=== PATIENT | female | born 1960 | race Caucasian/White ===

== ENCOUNTER 2024-10-15 15:39 | Emergency (ER) | payer OTHER, SELFPAY ==
--- NOTE | ~2024-10-15 | XR_ITS ---
XR foot RT min 3V Ordering provider: Lourdes Pineda NP History: . medial aspect of right foot pain from injury 4 hours . Comparison: None. FINDINGS: BONES: No acute fracture or dislocation. Calcaneus spur. JOINT SPACES: Narrowing of the proximal and distal interphalangeal joints of the middle 3 toes. No ta rsal coalition. SOFT TISSUES: Normal. IMPRESSION: No acute osseous abnormality of the right foot. Reviewed, dictated and finalized at location A. GE MANAGER
[2024-10-15 15:55] VITALS: BP 130/111; PULSE 82; RESP 18; TEMP 36.9; O2SAT 100
--- NOTE | 2024-10-15 16:00 | ED_ITS ---
HPI - Extremity Injury (Lower) General Chief Complaint: Extremity Injury, Lower Stated Complaint: Rt foot injury Time Seen by Provider: 10/15/24 16:06 Source: patient, RN notes reviewed and old records reviewed Mode of arrival: ambulatory Limitations: no limitations History of Present Illness HPI Narrative: 64 year old female who presents to express care with complaints of pain to the right foot medial aspect and under her foot after she fell about noon today off stair. Patient reports that she twisted her foot and fell onto her right side hurting her foot.Patient has applied ankle /foot sleeve katherine of splint to her right foot and has applied some ice, and taken Tylenol for her discomfort. MD complaint: foot injury Onset (ago): day(s) (today at noon) Type of Injury: other (twisted) Severity scale (1-10): 5 Exacerbating factors: weight bearing and movement Treatments prior to arrival: cold therapy, splint and other (Tylenol) Related Data Home Medications Medication Instructions Recorded Confirmed alendronate 70 mg tablet See Rx Instructions .Route .COMPLEX 10/15/24 10/15/24 estradiol 0.01% (0.1 mg/gram) vaginal 10/15/24 10/15/24 vaginal cream rosuvastatin 20 mg tablet 20 mg PO DAILY 10/15/24 10/15/24 Allergies Allergy/AdvReac Type Severity Reaction Status Date / Time No Known Allergies Allergy Verified 10/15/24 16:05 Review of Systems Review of Systems: CONSTITUTIONAL: Denies fever, chills, or sweats. EYES: Denies visual changes, redness, or discharge. ENT: Denies rhinorrhea, congestion, sore throat, or otalgia. CARDIOVASCULAR: Denies chest pain, palpitations, or edema. RESPIRATORY: Denies cough or dyspnea. GASTROINTESTINAL: Denies abdominal pain, nausea, vomiting, or diarrhea. GENITOURINARY: Denies dysuria or hematuria. SKIN: Denies rash or itching. MUSCULOSKELETAL: Denies back pain,right foot pain medial aspect and plantar aspect, or myalgia. NEUROLOGIC: Denies headache, numbness, or weakness. PSYCHIATRIC: Denies anxiety or depression. All systems reviewed & are unremarkable except as noted in HPI and below PMFSH Past Medical History Medical History (Updated 10/17/24 @ 18:25 by Lourdes L. Edwin, [employer]) Hyperlipidemia Osteopenia osteoporosis Surgical History Surgical History (Updated 10/17/24 @ 18:17 by Lourdes Pineda NP) Hx of toe surgery Previous section Social History Social History (Updated 10/17/24 @ 18:18 by Lourdes Pineda NP) Smoking status: Never smoker Alcohol intake: current Alcohol use details: social Substance use type: does not use Living arrangements: with family Gender identity (if verbalized by the patient): Female Comments At time of signature, agree with nursing past medical, surgical, social and family history. There is no relevant family history pertinent to the presenting complaint Exam Narrative: GENERAL: Well-appearing, well-nourished, and in no acute distress. HEAD: Normocephalic, atraumatic. EYES: PERRLA and EOMI. ENT: Nares clear, no rhinorrhea or epistaxis. Mucous membranes moist. NECK: Supple.no lymphadenopathy CHEST: Clear to auscultation. No respiratory distress.SAO2 100% on room air HEART: Regular rate and rhythm. No murmur heard. Normal peripheral pulses. ABDOMEN: Soft, nontender, nondistended, normal active bowel sounds. EXTREMITIES: Normal range of motion. No edema.Exception noted to right medial foot with pain to medial aspect and plantar area from fall, strong pedal pulse, no obvious deformity, sensation and circulation intact, increase discomfort with movement and attempted full weight bearing. SKIN: Warm, dry, no rash. NEURO: No focal deficits. Alert and oriented x3. Course Course Emergency Course: Patient is aware of diagnosis, understands and agrees to treatment plan.? Anticipatory guidance given.? Patient agrees to follow-up as directed and is aware of reasons to seek care at the emergency department. Portions of this record may have been created with voice recognition software Level of Care: Express Care Visit Vital Signs Vital signs: Vital Signs Temperature 36.9 C 10/15/24 15:55 Pulse Rate 82 10/15/24 15:55 Respiratory Rate 18 10/15/24 15:55 Blood Pressure 130/111 H 10/15/24 15:55 Pulse Oximetry 100 10/15/24 15:55 Oxygen Delivery Room Air 10/15/24 15:55 Temperature 36.9 C 10/15/24 15:55 Pulse Rate 82 10/15/24 15:55 Respiratory Rate 18 11/27/24 15:55 Blood Pressure 140/90 11/27/24 17:00 Pulse Oximetry 100 10/15/24 15:55 Oxygen Delivery Room Air 10/15/24 15:55 Reviewed MDM - Extremity Injury (Lower) Differential Diagnosis Differential diagnosis: Likely other (foot fracture, acute srain right foot, pain to right foot from injury) Medical Records Attestation: I reviewed the patient's medical records. Imaging Data Attestation: I personally reviewed and interpreted this imaging study as follows: My impression: no acute osseous findings, soft tissues normal Radiologist's impression: [facility] [place] [address] [place] [address] XRay Report Signed Patient: Nusrat Conroy : 1960 MR#: [id number] Age: 64 Acct:[id number] Loc: EXP ADM Date: 10/15/24Attending Dr: Ordering Physician: Lourdes Pineda APRN Date of Service: 10/15/24 Procedure(s): XR foot RT min 3V Accession Number(s): [id number] cc: Lourdes Pineda APRN; Maurilio, Katy BAXTER~ XR foot RT min 3V Ordering provider: Lourdes Pineda NP History: . medial aspect of right foot pain from injury 4 hours . Comparison: None. FINDINGS: BONES: No acute fracture or dislocation. Calcaneus spur. JOINT SPACES: Narrowing of the proximal and distal interphalangeal joints of the middle 3 toes. No tarsal coalition. SOFT TISSUES: Normal. IMPRESSION: No acute osseous abnormality of the right foot. Reviewed, dictated and finalized at location A. [employer]ING INSTRUCTOR Dictated By: Benjamin Hammer MD 10/15/24 [id number] Signed By: <Electronically signed by Benjamin Hammer MD in OV> Critical Care Time Critical Care Time Critical Care Time: No Discharge Plan Discharge Clinical Impression: Sprain of foot, right Patient Disposition: Home, Self-Care Condition: Stable Instructions: Antibiotic Form, Foot Sprain (ED) Additional Instructions: Elastic wrap or orthopedic splint as directed for comfort for the next 5-7 days Tylenol for lesser pain Ibuprofen regularly for the next 2-3 days for the inflammation Follow-up with orthopedic surgeon if continued problems Follow-up with PCP if further problems or concerns Ice to the area 20-30 minutes 4-6 times a day Elevate above heart If your symptoms persist, change or worsen significantly before you can contact your personal physician then please, without delay, go to the emergency department for further evaluation. Follow-up with PCP in 7-10 days or sooner if needed Follow up with PCP soon in regards to your blood pressure which is elevated above threshold for referral. Blood pressure above 120/80 may indicate pre- hypertension.140/90 Prescriptions: No Action alendronate 70 mg tablet See Rx Instructions .ROUTE .COMPLEX Rx Instructions: as prescribed estradiol 0.01 % (0.1 mg/gram) cream VAGINAL Rx Instructions: ass prescribed rosuvastatin 20 mg tablet 20 mg PO DAILY Follow-up/Referrals: Maurilio,MD Katy [Primary Care Provider] - Time of Disposition: 16:56 Quality Emi Coma Scale Eyes: Open Verbal: Oriented and Alert Motor: Follows Commands Emi Coma Total Score: 15
[2024-10-15 17:00] VITALS: BP 140/90
== END 2024-10-15 17:00 | disposition home or self-care (01) ==
PROVIDERS: Emergency Provider Registered Nurse; PCP Internal Medicine Geriatric Medicine
DX: S93.601A Unspecified sprain of right foot, initial encounter (principal); W10.9XXA Fall (on) (from) unspecified stairs and steps, initial encounter; E78.5 Hyperlipidemia, unspecified; M85.80 Other specified disorders of bone density and structure, unspecified site; M81.0 Age-related osteoporosis without current pathological fracture
CPT/HCPCS: 73630; 99203; G0463